=== PATIENT | male | born 1975 | race Hispanic/Latino ===

== ENCOUNTER 2016-06-28 11:39 | Emergency (ER) | payer MEDICAID, OTHER ==
[2016-06-28 11:39] VITALS: BMI 24.9
--- NOTE | 2016-06-28 12:07 | ED PDOC ---
Lower Extremity Pain/Injury Time Seen by Provider: 06/28/16 12:04 Chief Complaint (Nursing): Lower Extremity Problem/Injury Chief Complaint (Provider): Leg pain History Per: Patient Additional Complaint(s): pt. into ER c/o bilat. lower extremity pain and rash to rt. leg x 2 weeks. also c/o swelling to bilat. hands x 2 weeks. states he was admitted to [facility] 2 weeks ago and started on new medication. As per pt. he is unsure if he had an allergic reaction to med. Pt. reports he has been noncompliant with his medications. Past Medical History Reviewed: Historical Data, Nursing Documentation, Vital Signs Vital Signs: Last Vital Signs Temp 99.0 F 06/28/16 11:54 Pulse 82 06/28/16 11:54 Resp 20 06/28/16 11:54 BP 139/69 06/28/16 11:54 Pulse Ox 99 06/28/16 11:54 - Medical History PMH: Anxiety, COPD, Depression, HTN, Post Traumatic Stress Disorder Denies: Anemia, Bipolar Disorder, Diabetes, Hepatitis, HIV, Personality Disorder, Chronic Kidney Disease, Schizophrenia, Seizures, Sexually Transmitted Disease - Surgical History Surgical History: Hernia Repair - Family History Family History: States: Unknown Family Hx - Immunization History Hx Tetanus Toxoid Vaccination: No Hx Influenza Vaccination: No Hx Pneumococcal Vaccination: No - Home Medications Home Medications: Ambulatory Orders Medication Instructions Recorded Sertraline [Zoloft] 100 mg PO DAILY #60 tab 06/23/16 traZODone [Desyrel] 100 mg PO HS PRN #30 tab 06/23/16 - Allergies Allergies/Adverse Reactions: Allergies Allergy/AdvReac Type Severity Reaction Status Date / Time amoxicillin Allergy RASH Verified 06/28/16 11:50 Penicillins Allergy RASH Verified 06/28/16 11:50 Review of Systems ROS Statement: Except As Marked, All Systems Reviewed And Found Negative Musculoskeletal: Positive for: Other (stasis dermatitis noted b/l lower extremities) Neurological: Positive for: Other (reports feeling foggy) Psych: Negative for: Suicidal ideation Physical Exam - Reviewed Nursing Documentation Reviewed: Yes Vital Signs Reviewed: Yes - Physical Exam Appears: Positive for: Well, Non-toxic, No Acute Distress Eye Exam: Positive for: Normal appearance Respiratory: Negative for: Respiratory Distress Extremity: Positive for: Normal ROM (normal ROM all joints), Swelling (edema to b/l hands, no erythema noted.), Other (mild 1+ pitting edema of lower extremities bilaterally. stasis dermatitis noted in lower extremities bilaterally.) - Laboratory Results Result Diagrams: 06/28/16 13:25 06/28/16 13:25 - ECG O2 Sat by Pulse Oximetry: 99 (RA) Pulse Ox Interpretation: Normal Medical Decision Making Medical Decision Making: Time: 1236 Plan: * Crisis evaluation * Alcohol serum * CMP * CBC * Drug screen * * Labs resulted and reviewed, compared to previous visits as well. * * Pt underwent crisis eval, see note. * * Pt asleep on re-eval in ED room, stable for discharge Disposition - Clinical Impression Clinical Impression: Depression, Stasis dermatitis - Patient ED Disposition Is Patient to be Admitted: No - Disposition Disposition: Routine/Home Disposition Time: 15:47 Condition: STABLE Instructions: Stasis Dermatitis (ED), Depression (ED)
[2016-06-28 13:31] LABS: BASO % 0.8 % (0.0-2.0); EOS # 0.2 K/uL (0.0-0.7); EOS % 6.8 % (0.0-4.0); HEMATOCRIT 34.5 % (35.0-51.0); LYMPH # 0.9 K/uL (1.0-4.3); LYMPH % 30.7 % (20.0-40.0); MEAN CELL VOLUME 92.9 fl (80.0-94.0); MEAN CORPUSCULAR HEMOGLOBIN 32.6 pg (27.0-31.0); MEAN PLATELET VOLUME 7.9 fl (7.2-11.7); MONO # 0.3 K/uL (0.0-0.8); NEUT # 1.5 K/uL (1.8-7.0); NEUT % 52.7 % (50.0-75.0); NRBC % 0.1 % (0.0-0.0); RED CELL DISTRIBUTION WIDTH 15.9 % (11.5-14.5); WHITE BLOOD COUNT 2.9 K/uL (4.8-10.8)
[2016-06-28 13:47] LABS: ALB/GLOB RATIO 0.7 (1.0-2.1); ALCOHOL SERUM < 10 mg/dl (0-10); ALKALINE PHOSPHATASE 122 U/L (38-126); ALT/SGPT 53 U/L (21-72); AST/SGOT 78 U/L (17-59); BILIRUBIN,TOTAL 2.5 mg/dl (0.2-1.3); BLOOD UREA NITROGEN 9 mg/dl (9-20); CALCIUM 8.2 mg/dL (8.4-10.2); CARBON DIOXIDE 24 mmol/L (22-30); CHLORIDE 109 mmol/L (98-107); GFR AFRICAN-AMERICAN > 60; GLUCOSE,RANDOM 112 mg/dL (75-110); SODIUM 139 mmol/l (132-148); TOTAL PROTEIN 6.2 G/DL (6.3-8.2)
[2016-06-28 15:57] VITALS: BP 129/73; PULSE 85; RESP 18; TEMP 98.9; O2SAT 100
== END 2016-06-28 15:56 | disposition home or self-care (01) ==
LOC: H.ER 11:39
DX: L30.9 Dermatitis, unspecified (principal); R60.0 Localized edema

== ENCOUNTER 2016-06-28 20:31 | Emergency (ER) | payer OTHER ==
[2016-06-28 20:32] VITALS: BMI 24.9
[2016-06-28 21:21] VITALS: BP 136/75; PULSE 82; RESP 18; TEMP 98.3; O2SAT 98
--- NOTE | 2016-06-28 22:04 | ED PDOC ---
HPI: Psych/Substance Abuse Time Seen by Provider: 06/28/16 20:51 Chief Complaint (Nursing): Psychiatric Evaluation Chief Complaint (Provider): SI History Per: Patient Additional Complaint(s): Pt is a 40 yo male, PMH of Hep B and C, presents to ED with complaints of suicidal ideations, as per triage. Pt seen and evlauated by ghost writer earlier today after he presented with b/l LE swelling and depression. Pt had full medical and psychiatric evaluation. Pt was cleared for discharge. Pt was recently admitted to [facility] for depression and reports that he was discharged too soon. Contrary to triage note, Pt admits that he has no place to go. Was unable to get into the jail and would like to "check into" the hospital. Pt admits that he does not infact have suicidal ideations, does not have any homicidal ideations either. Past Medical History Reviewed: Nursing Documentation, Vital Signs Vital Signs: Last Vital Signs Temp 98.3 F 06/28/16 21:17 Pulse 82 06/28/16 21:17 Resp 18 06/28/16 21:17 BP 136/75 06/28/16 21:17 Pulse Ox 98 06/28/16 21:17 - Medical History PMH: Anxiety, COPD, Depression, HTN, Post Traumatic Stress Disorder Denies: Anemia, Bipolar Disorder, Diabetes, Hepatitis, HIV, Personality Disorder, Chronic Kidney Disease, Schizophrenia, Seizures, Sexually Transmitted Disease - Surgical History Surgical History: Hernia Repair - Family History Family History: States: Unknown Family Hx - Living Arrangements Living Arrangements: Other - Social History Current smoker - smoking cessation education provided: No Ex-Smoker (has not smoked in the last 12 months): No Alcohol: > 2 Drinks/Day Drugs: Denies - Immunization History Hx Tetanus Toxoid Vaccination: No Hx Influenza Vaccination: No Hx Pneumococcal Vaccination: No - Home Medications Home Medications: Ambulatory Orders Medication Instructions Recorded Sertraline [Zoloft] 100 mg PO DAILY #60 tab 06/23/16 traZODone [Desyrel] 100 mg PO HS PRN #30 tab 06/23/16 - Allergies Allergies/Adverse Reactions: Allergies Allergy/AdvReac Type Severity Reaction Status Date / Time amoxicillin Allergy RASH Verified 06/28/16 11:50 Penicillins Allergy RASH Verified 06/28/16 11:50 Review of Systems ROS Statement: Except As Marked, All Systems Reviewed And Found Negative Physical Exam - Reviewed Nursing Documentation Reviewed: Yes Vital Signs Reviewed: Yes - Physical Exam Appears: Positive for: Well, Non-toxic, No Acute Distress Head Exam: Positive for: ATRAUMATIC, NORMAL INSPECTION, NORMOCEPHALIC Skin: Positive for: Normal Color, Warm, DRY Eye Exam: Positive for: EOMI, Normal appearance, PERRL ENT: Positive for: Normal ENT Inspection Neck: Positive for: Normal, Painless ROM Cardiovascular/Chest: Positive for: Regular Rate, Rhythm Respiratory: Positive for: CNT, Normal Breath Sounds Gastrointestinal/Abdominal: Positive for: Normal Exam, Bowel Sounds, Soft Back: Positive for: Normal Inspection Extremity: Positive for: Swelling, Other (stasis dermatitis) Neurologic/Psych: Positive for: Alert, Oriented - ECG O2 Sat by Pulse Oximetry: 98 Medical Decision Making Medical Decision Making: Pt allowed to remain in ED until midnight. stable for discharge on re-eval, provided with jail information Disposition - Clinical Impression Clinical Impression: Homeless, Stasis dermatitis - Patient ED Disposition Is Patient to be Admitted: No - Disposition Disposition: Routine/Home Disposition Time: 23:00 Condition: STABLE - POA Present On Arrival: None
== END 2016-06-28 23:35 | disposition home or self-care (01) ==
LOC: H.ER 20:31
DX: R45.851 Suicidal ideations (principal); F32.9 Major depressive disorder, single episode, unspecified; I10 Essential (primary) hypertension; F43.10 Post-traumatic stress disorder, unspecified; I87.2 Venous insufficiency (chronic) (peripheral); Z88.0 Allergy status to penicillin

== ENCOUNTER 2016-09-03 23:31 | Emergency (ER) | payer SELFPAY ==
[2016-09-03 23:32] VITALS: BMI 24.9
[2016-09-03 23:37] VITALS: BP 120/63; PULSE 74; RESP 18; TEMP 97.7; O2SAT 97
[2016-09-03] MEDS ORDERED: Sodium Chloride 0.9% 1,000 ML IV STA (23:46)
[2016-09-04 00:28] LABS: BASO % 0.5 % (0.0-2.0); EOS # 0.2 K/uL (0.0-0.7); EOS % 4.2 % (0.0-4.0); HEMOGLOBIN 12.5 g/dL (12.0-18.0); LYMPH # 0.8 K/uL (1.0-4.3); LYMPH % 22.4 % (20.0-40.0); MEAN CELL VOLUME 93.1 fl (80.0-94.0); MEAN CORPUSCULAR HEMOGLOBIN 31.6 pg (27.0-31.0); MEAN PLATELET VOLUME 7.9 fl (7.2-11.7); MONO # 0.4 K/uL (0.0-0.8); MONO % 10.4 % (0.0-10.0); NEUT # 2.3 K/uL (1.8-7.0); NEUT % 62.5 % (50.0-75.0); NRBC % 0.1 % (0.0-0.0); RBC 3.95 Mil/uL (4.40-5.90); RED CELL DISTRIBUTION WIDTH 16.5 % (11.5-14.5); WHITE BLOOD COUNT 3.7 K/uL (4.8-10.8)
[2016-09-04 00:36] LABS: ALB/GLOB RATIO 1.1 (1.0-2.1); ALBUMIN 3.5 g/dL (3.5-5.0); ALT/SGPT 59 U/L (21-72); AST/SGOT 74 U/L (17-59); BLOOD UREA NITROGEN 10 mg/dl (9-20); CALCIUM 8.4 mg/dL (8.4-10.2); GFR AFRICAN-AMERICAN > 60; GFR NON-AFRICAN AMERICAN > 60
--- NOTE | 2016-09-04 01:49 | ED PDOC ---
HPI: Psych/Substance Abuse Time Seen by Provider: 09/03/16 23:44 Chief Complaint (Nursing): Substance Abuse Chief Complaint (Provider): Substance Abuse ED Caveat: Intoxicated History Per: EMS Onset/Duration Of Symptoms: Hrs Suicide/Self Injury Attempted (Context): None Modifying Factor(s): Narcotics Additional Complaint(s): 40 y/o male patient presenting to the ED with substance abuse. PT was brought in by EMS for public intoxication and was vomiting prior to arrival. Pt smokes and has a usage of opioids, heroin and alcohol. PT's past medical history includes: Cirrhosis of the liver, alcohol abuse, depression, public intoxication , heroin abuse and the patient is currently homeless. Past Medical History Reviewed: Historical Data, Nursing Documentation, Vital Signs Vital Signs: Last Vital Signs Temp 97.7 F 09/03/16 23:34 Pulse 74 09/03/16 23:34 Resp 18 09/03/16 23:34 BP 120/63 09/03/16 23:34 Pulse Ox 97 09/03/16 23:34 - Medical History PMH: Anxiety, COPD, Depression, HTN, Post Traumatic Stress Disorder Denies: Anemia, Bipolar Disorder, Diabetes, Hepatitis, HIV, Personality Disorder, Chronic Kidney Disease, Schizophrenia, Seizures, Sexually Transmitted Disease Other PMH: Cirrhosis of the liver - Surgical History Surgical History: Hernia Repair - Family History Family History: States: Unknown Family Hx - Social History Current smoker - smoking cessation education provided: Yes Alcohol: > 2 Drinks/Day Drugs: Opiates, Other ((+)Heroin ) - Immunization History Hx Tetanus Toxoid Vaccination: No Hx Influenza Vaccination: No Hx Pneumococcal Vaccination: No - Home Medications Home Medications: Ambulatory Orders Medication Instructions Recorded Sertraline [Zoloft] 100 mg PO DAILY #60 tab 06/23/16 traZODone [Desyrel] 100 mg PO HS PRN #30 tab 06/23/16 - Allergies Allergies/Adverse Reactions: Allergies Allergy/AdvReac Type Severity Reaction Status Date / Time amoxicillin Allergy RASH Verified 06/28/16 11:50 Penicillins Allergy RASH Verified 06/28/16 11:50 Review of Systems ROS Statement: Except As Marked, All Systems Reviewed And Found Negative Gastrointestinal: Positive for: Vomiting Physical Exam - Reviewed Nursing Documentation Reviewed: Yes Vital Signs Reviewed: Yes - Physical Exam Appears: Positive for: Non-toxic, No Acute Distress Skin: Positive for: Normal Color, Warm, Dry Neurologic/Psych: Positive for: Alert, Oriented. Negative for: Motor/Sensory Deficits - Laboratory Results Result Diagrams: 09/04/16 00:25 09/04/16 00:25 - ECG O2 Sat by Pulse Oximetry: 97 (RA) Pulse Ox Interpretation: Normal Medical Decision Making Medical Decision Making: Time: 2343 Initial impression: Substance Abuse, Active Vomiting. Initial plan: --EKG --DRUG SCREEN, URINE --ED URINE DIPSTICK --EKG-ED --SODIUM CHLORIDE --ONDANSETRON --HEPLOCK INSERTION --ACCUCHECK --URINALYSIS 0130 Re-Assess/Discharge Patient stable for discharge. Diagnosis: Heroin Abuse Scribe Attestation: Documented by Sona Parikh, acting as a scribe for Cr Vela MD MD Scribe Attestation: All medical record entries made by the Scribe were at my direction and personally dictated by me. I have reviewed the chart and agree that the record accurately reflects my personal performance of the history, physical exam, medical decision making, and the department course for this patient. I have also personally directed, reviewed, and agree with the discharge instructions and disposition. Disposition - Clinical Impression Clinical Impression: Heroin abuse - Patient ED Disposition Is Patient to be Admitted: No - Disposition Disposition: Routine/Home Disposition Time: 01:30 Condition: STABLE Instructions: Narcotic Abuse (ED)
--- NOTE | 2016-09-04 08:56 | CARD ---
APPROVED REPORT EKG Measurement Heart [id number] ID [id number] <Conclusion> Normal sinus rhythm RSR' or QR pattern in V1 suggests right ventricular conduction delay Borderline ECG
== END 2016-09-04 05:45 | disposition home or self-care (01) ==
LOC: H.ER 23:31
DX: F11.10 Opioid abuse, uncomplicated (principal); F32.9 Major depressive disorder, single episode, unspecified; F43.10 Post-traumatic stress disorder, unspecified; I10 Essential (primary) hypertension; F17.200 Nicotine dependence, unspecified, uncomplicated; K74.60 Unspecified cirrhosis of liver; J44.9 Chronic obstructive pulmonary disease, unspecified; Z59.0 Homelessness; Z88.0 Allergy status to penicillin
CPT/HCPCS: 80053; 82948; 85025; 93005; 99284; G0480; J2405; J7040

== ENCOUNTER 2017-01-17 02:15 | Emergency (ER) | payer OTHER ==
[2017-01-17 02:15] VITALS: BMI 24.9
[2017-01-17 02:34] VITALS: TEMP 98.7; O2SAT 98
[2017-01-17] MEDS ORDERED: Alum-Mag Hydrox-Simethicone Susp (30 mL) PO ONE (03:03)
[2017-01-17] MEDS ORDERED: Alum-Mag Hydrox-Simethicone Susp (30 mL) ONE (03:22)
--- NOTE | 2017-01-17 03:27 | ED PDOC ---
HPI: Chest Pain Time Seen by Provider: 01/17/17 02:29 Chief Complaint (Nursing): Abdominal Pain Chief Complaint (Provider): Epigastric and Chest Pain History Per: Patient History/Exam Limitations: no limitations Onset/Duration Of Symptoms: Hrs (x5) Current Symptoms Are (Timing): Still Present Additional Complaint(s): Westley Henderson Jr is a 41-year-old male, well known to the ER for multiple visits, who was last seen 3 weeks ago and diagnosed with gastroesophageal reflux. He states taking his Pepcid as prescribed, which has alleviated symptoms but he ran out and today developed chest heaviness and a burning sensation in the abdomen and chest. He reports having experienced this in the past with previous episodes of GERD. At 10PM symptoms recurred, and he presents to the ER. Denies nausea, vomiting, and shortness of breath. He reports pain is worsened when he lays down, and improves when he sits up. Admits to cocaine use and alcohol use 1 day prior. PMD: Provider TBD Past Medical History Reviewed: Historical Data, Nursing Documentation, Vital Signs Vital Signs: Last Vital Signs Temp 98.7 F 01/17/17 02:31 Pulse 95 H 01/17/17 05:23 Resp 16 01/17/17 05:23 BP 154/92 H 01/17/17 05:23 Pulse Ox 98 01/17/17 05:23 - Medical History PMH: Anxiety, COPD, Depression, GERD, Hepatitis (C), HTN, Peripheral Edema, Post Traumatic Stress Disorder Denies: Anemia, Bipolar Disorder, Diabetes, HIV, Personality Disorder, Chronic Kidney Disease, Schizophrenia, Seizures, Sexually Transmitted Disease - Surgical History Surgical History: Hernia Repair - Family History Family History: States: No Known Family Hx - Social History Current smoker - smoking cessation education provided: Yes Alcohol: Social Drugs: Cocaine - Immunization History Hx Tetanus Toxoid Vaccination: No Hx Influenza Vaccination: No Hx Pneumococcal Vaccination: No - Home Medications Home Medications: Ambulatory Orders Medication Instructions Recorded Sertraline [Zoloft] 100 mg PO DAILY #60 tab 06/23/16 traZODone [Desyrel] 100 mg PO HS PRN #30 tab 06/23/16 Famotidine [Heartburn Prevention] 20 mg PO BID #30 tablet 12/25/16 Famotidine [Pepcid] 20 mg PO Q12 #28 tab 01/17/17 - Allergies Allergies/Adverse Reactions: Allergies Allergy/AdvReac Type Severity Reaction Status Date / Time amoxicillin Allergy RASH Verified 01/17/17 02:31 Penicillins Allergy RASH Verified 01/17/17 02:31 Review of Systems ROS Statement: Except As Marked, All Systems Reviewed And Found Negative Cardiovascular: Positive for: Chest Pain Respiratory: Negative for: Shortness of Breath Gastrointestinal: Positive for: Abdominal Pain (epigastric). Negative for: Nausea, Vomiting Physical Exam - Reviewed Nursing Documentation Reviewed: Yes Vital Signs Reviewed: Yes - Physical Exam Appears: Positive for: Non-toxic, No Acute Distress Head Exam: Positive for: ATRAUMATIC, NORMOCEPHALIC Skin: Positive for: Normal Color, Warm, Dry Eye Exam: Positive for: EOMI, Normal appearance, PERRL Neck: Positive for: Normal, Painless ROM Cardiovascular/Chest: Positive for: Regular Rate, Rhythm. Negative for: Murmur Respiratory: Positive for: Normal Breath Sounds. Negative for: Respiratory Distress Gastrointestinal/Abdominal: Positive for: Soft, Tenderness (Mild epigastric tenderness) Back: Positive for: Normal Inspection. Negative for: Vertebral Tenderness Extremity: Positive for: Normal ROM. Negative for: Pedal Edema, Deformity Neurologic/Psych: Positive for: Alert, Oriented (x3). Negative for: Motor/ Sensory Deficits - Laboratory Results Result Diagrams: 01/17/17 03:27 01/17/17 03:27 - ECG ECG: Positive for: Interpreted By Me, Viewed By Me, Discussed With Senior Catering Sales Manager Interpretation Of ECG: Sinus tachycardia at 105 bpm, with incomplete right bundle, and questionable ST elevations in v2, v3, v4, and v5. O2 Sat by Pulse Oximetry: 98 (RA) Pulse Ox Interpretation: Normal - Other Rad Chest X-Ray X-Ray: Interpreted by Me, Viewed By Me X-Ray Interpretation: No acute disease Medical Decision Making Medical Decision Making: Time: 03:03 Initial Impression: 41 year old male with epigastric and chest pain, in setting of known previously diagnosed reflux Initial Plan: --EKG --Pepcid 20 mg PO --Lidocaine 2% viscous PO --Maalox Plus 30 ml PO --Pending reevaluation Time: 3:10 Initial EKG: Sinus tachycardia at 105 bpm, with incomplete right bundle, and questionable ST elevations in v2, v3, v4, and v5. Time: 3:[address] Garcia, who reviewed patients EKG from home, and states the patients ST elevations are likely related to his bundle branch block, and he is not a code heart candidate. Recommends cardiac work-up. Time: 03:13 --Alcohol serum --CMP --Urine drug screen --Lipase --Troponin I --CBC w/ differential --PTT --Prothrombin time --Chest x-ray --Repeat EKG Repeat EKG: sinus tachycardia at 102 bpm with incomplete right bundle, no ST or T elevations. Time: 04:51 Chest x-ray shows no acute disease. Labs reviewed and revealed no clinically significant abnormalities. Discussed the need to keep patient hospitalized for observation. Patient refuses , choosing to leave against medical advice. Leaving Against Medical Advice (AMA): This patient is choosing to leave against medical advice. The EP has personally explained to the pt that choosing to do so may result in permanent bodily harm or . The EP discussed at great length that without further evaluation and monitoring there may be unforeseen circumstances and/or deterioration causing permanent bodily harm or as a result of their choice. The pt verbalized these risks back to the physician in laymans terms. The pt is alert , oriented, and shows the mental capacity to make clear decisions regarding the pts health care at this time. The pt continues to wish to leave against medical advice. In light of the pts decision to leave AMA, follow-up has been arranged and the pt is aware of the importance of following up as instructed. The pt has been advised that they should return to the ED immediately if they change their mind at any time, or if their condition begins to change or worsen in any way. Scribe Attestation: Documented by Judith Kaba, acting as a scribe for Cr Vela MD Provider Scribe Attestation: All medical record entries made by the Scribe were at my direction and personally dictated by me. I have reviewed the chart and agree that the record accurately reflects my personal performance of the history, physical exam, medical decision making, and the department course for this patient. I have also personally directed, reviewed, and agree with the discharge instructions and disposition. Disposition - Clinical Impression Clinical Impression: GERD (gastroesophageal reflux disease), Chest pain, Cocaine abuse - Patient ED Disposition Is Patient to be Admitted: No Counseled Patient/Family Regarding: Studies Performed, Diagnosis, Need For Followup, Rx Given - Disposition Disposition: Against Medical Advice Disposition Time: 04:51 Condition: STABLE Prescriptions: Famotidine [Pepcid] 20 mg PO Q12 #28 tab Instructions: Gastroesophageal Reflux Disease (ED) Forms: [employer] (Micronesian)
[2017-01-17 03:32] LABS: BASO % 0.7 % (0.0-2.0); EOS % 1.3 % (0.0-4.0); HEMATOCRIT 36.2 % (35.0-51.0); LYMPH # 0.8 K/uL (1.0-4.3); MEAN CELL VOLUME 89.5 fl (80.0-94.0); MEAN CORPUSCULAR HEMOGLOBIN 31.2 pg (27.0-31.0); MEAN CORPUSCULAR HGB CONC 34.9 g/dL (33.0-37.0); MEAN PLATELET VOLUME 7.8 fl (7.2-11.7); MONO # 0.2 K/uL (0.0-0.8); MONO % 6.7 % (0.0-10.0); NEUT # 1.6 K/uL (1.8-7.0); NEUT % 62.3 % (50.0-75.0); NRBC % 0.3 % (0.0-0.0); RED CELL DISTRIBUTION WIDTH 16.2 % (11.5-14.5); WHITE BLOOD COUNT 2.6 K/uL (4.8-10.8)
[2017-01-17 03:50] LABS: PARTIAL THROMBOPLASTIN TIME 41.8 Seconds (25.6-37.1)
[2017-01-17 04:11] LABS: ALB/GLOB RATIO 1.1 (1.0-2.1); ALCOHOL SERUM 53 mg/dl (0-10); ALKALINE PHOSPHATASE 90 U/L (38-126); ALT/SGPT 316 U/L (21-72); AST/SGOT 388 U/L (17-59); BILIRUBIN,TOTAL 2.1 mg/dl (0.2-1.3); BLOOD UREA NITROGEN 10 mg/dl (9-20); CALCIUM 8.4 mg/dL (8.4-10.2); CARBON DIOXIDE 23 mmol/L (22-30); CHLORIDE 108 mmol/L (98-107); GFR AFRICAN-AMERICAN > 60; GLUCOSE,RANDOM 110 mg/dL (75-110); LIPASE 87 U/L (23-300); POTASSIUM 3.7 MMOL/L (3.6-5.0); SODIUM 145 mmol/l (132-148)
[2017-01-17 05:23] VITALS: BP 154/92; PULSE 95; RESP 16
--- NOTE | 2017-01-17 09:19 | RAD ---
HISTORY: chest pain COMPARISON: No prior. FINDINGS: LUNGS: No active pulmonary disease. PLEURA: No significant pleural effusion identified, no pneumothorax apparent. CARDIOVASCULAR: Normal. OSSEOUS STRUCTURES: No significant abnormalities. VISUALIZED UPPER ABDOMEN: Normal. OTHER FINDINGS: None. IMPRESSION: No active disease.
--- NOTE | 2017-01-17 14:08 | CARD ---
APPROVED REPORT EKG Measurement Heart [id number] <Conclusion> Sinus tachycardia Possible Left atrial enlargement Incomplete right bundle branch block Borderline ECG
--- NOTE | 2017-01-17 14:09 | CARD ---
APPROVED REPORT EKG Measurement Heart [id number] <Conclusion> Sinus tachycardia Possible Left atrial enlargement Incomplete right bundle branch block ST elevation, consider anterior injury or acute infarct Prolonged QT Please repeat to asses ST segment in V2 Abnormal ECG
== END 2017-01-17 05:04 | disposition left against medical advice (07) ==
LOC: H.ER 02:15
DX: K21.9 Gastro-esophageal reflux disease without esophagitis (principal); F14.10 Cocaine abuse, uncomplicated; F32.9 Major depressive disorder, single episode, unspecified; F43.10 Post-traumatic stress disorder, unspecified; I10 Essential (primary) hypertension; J44.9 Chronic obstructive pulmonary disease, unspecified; Z88.0 Allergy status to penicillin